=== PATIENT | female | born 1985 | race Caucasian/White ===

== ENCOUNTER 2019-01-24 23:09 | Emergency (ER) | payer OTHER ==
[~2019-01-24] VITALS: Ht 167.6 cm; Wt 61.2 kg
--- NOTE | 2019-01-24 23:54 | NUR ---
BREATH SOUNDS NOTED ON THE LT AND DIMINISHED ON THE RIGHT.
--- NOTE | 2019-01-24 23:54 | NUR ---
PT PRESENTED TO THE ER WITH A C/O COUGH W/CONGESTION. PT REC'D A Z-PACK 3 WEEKS AGO WITH NO IMROVEMENT. PT HAS A DRY COUGH. NO SPUTUM. PT IS C/O RT UPPER BACK PAIN (SHARP) AND PAIN WITH INSPIRATION/EXPIRATION.
--- NOTE | 2019-01-25 00:29 | NUR ---
CXR IN PROGRESS AT THE [facility].
--- NOTE | 2019-01-25 01:05 | NUR ---
PT APPEARS TO BE RESTING COMFORTABLY WITH NO S/S OF PAIN OR DISTRESS.
[2019-01-25] MEDS: DEXAMETHASONE SOD PHOSPHATE 4 MG/ML VIAL IM ONE (01:30)
--- NOTE | 2019-01-25 01:33 | NUR ---
PT REC'D MEDICATION ORDERED.
[2019-01-25] MEDS ORDERED: DEXAMETHASONE SOD PHOSPHATE 4 MG/ML VIAL ONE (01:35)
[2019-01-25 01:46] VITALS: BP 107/66
== END 2019-01-25 01:46 | disposition home or self-care (01) ==
LOC: ER 23:12
DX: J40 Bronchitis, not specified as acute or chronic (principal)
CPT/HCPCS: 71045; 96372; 99283; A4606; J1100

== ENCOUNTER 2019-04-21 00:34 | Emergency (ER) ==
[~2019-04-21] VITALS: Ht 167.6 cm; Wt 59.0 kg
--- NOTE | 2019-04-21 00:50 | NUR ---
PT PRESENTED TO THE ER WITH A C/O SOB. PT IS SPEAKING IN FULL SENTENCES AND IS C/O NON PRODUCTIVE COUGH. PT WAS PLACED ON THE MONITOR AND CONTINUOUS PULSE OX. O2 SAT IS 99-100% ON RA.
--- NOTE | 2019-04-21 01:42 | NUR ---
CXR IN PROGRESS AT THE BEDSIDE.
--- NOTE | 2019-04-21 01:50 | NUR ---
EKG AT BEDSIDE
--- NOTE | 2019-04-21 02:43 | NUR ---
Patient discharged to home in stable condition. Written and verbal after care instructions given. Patient verbalizes understanding of instruction. PT WAS TOLD TO GET AN APPT CARLOS ALBERTO WITH HER [employer] [facility] [employer] FOR FURTHER TESTING. PT'S VSS. PT AMBULATED OUT WITH A STEADY GAIT.
[2019-04-21 03:01] VITALS: BP 109/68
== END 2019-04-21 02:43 | disposition home or self-care (01) ==
LOC: ER 00:34
DX: R05 Cough (principal); R07.89 Other chest pain; J45.909 Unspecified asthma, uncomplicated; Z98.890 Other specified postprocedural states
CPT/HCPCS: 71045-TC

== ENCOUNTER 2019-07-13 02:22 | Emergency (ER) | payer OTHER ==
[2019-07-13] MEDS ORDERED: ONDANSETRON HCL/PF 4 MG/2 ML VIAL IVP ONE (03:30)
[2019-07-13] MEDS ORDERED: IV NS 0.9% 1,000 ML BAG IV ONE ×2 (03:30→05:00)
[2019-07-13] MEDS ORDERED: LOPERAMIDE HCL (2 MG CAP) 2 MG CAPSULE PO ONE ×2 (03:30→03:32)
[2019-07-13] MEDS ORDERED: FAMOTIDINE/PF INJ 20 MG/2 ML VIAL IV ONE ×2 (03:30→03:33)
[2019-07-13] MEDS ORDERED: ONDANSETRON HCL/PF 4 MG/2 ML VIAL ONE (03:32)
[2019-07-13] MEDS ORDERED: KETOROLAC TROMETHAMINE INJ 30 MG/ML VIAL ONE (05:48)
[2019-07-13] MEDS ORDERED: KETOROLAC TROMETHAMINE INJ 30 MG/ML VIAL IV ONE (06:00)
== END 2019-07-13 06:07 | disposition home or self-care (01) ==
DX: R11.2 Nausea with vomiting, unspecified (principal); R19.7 Diarrhea, unspecified; F41.9 Anxiety disorder, unspecified; J45.909 Unspecified asthma, uncomplicated; Z60.2 Problems related to living alone; Z98.890 Other specified postprocedural states
CPT/HCPCS: 36415; 80048; 80076; 81001; 83690; 84702; 85025; 96361; 96374; 96375; 99283; J1885; J2405; J3490; J7030 ×2

== ENCOUNTER 2019-10-31 13:02 | Emergency (ER) | payer BC, OTHER ==
[~2019-10-31] VITALS: Ht 170.2 cm; Wt 59.0 kg
--- NOTE | 2019-10-31 13:23 | NUR ---
PT CAME INTO THE ED C/O COUGH W/ CONGESTION X 1 WEEK, DIZZINESS, +NAUSEA. PT AAOX4, VSS, BREATHING EVEN AND UNLABORED ON ROOM AIR W/ NAD. PT CONENCTED TO THE MONITOR
[2019-10-31] MEDS ORDERED: IPRATROPIUM NEB FS 0.5 MG/2.5 ML AMPUL.NEB NEB ONE (14:00)
[2019-10-31] MEDS ORDERED: BENZONATATE 100 MG CAPSULE PO PRN (14:00)
[2019-10-31] MEDS ORDERED: predniSONE 20 MG TABLET PO ONE (14:00)
[2019-10-31] MEDS ORDERED: ALBUTEROL FS 2.5 MG/3 ML VIAL.NEB NEB ONE (14:00)
[2019-10-31] MEDS ORDERED: predniSONE 20 MG TABLET ONE (14:08)
[2019-10-31] MEDS ORDERED: IPRATROPIUM NEB FS 0.5 MG/2.5 ML AMPUL.NEB ONE (14:10)
[2019-10-31] MEDS ORDERED: ALBUTEROL FS 2.5 MG/3 ML VIAL.NEB ONE (14:10)
[2019-10-31 15:22] VITALS: BP 118/74
--- NOTE | 2019-10-31 15:22 | NUR ---
Patient discharged to home in stable condition. Written and verbal after care instructions given. Patient verbalizes understanding of instruction.
== END 2019-10-31 15:23 | disposition home or self-care (01) ==
LOC: ER 13:02
DX: J45.909 Unspecified asthma, uncomplicated (principal); F41.9 Anxiety disorder, unspecified; Z60.2 Problems related to living alone; Z98.890 Other specified postprocedural states
CPT/HCPCS: 71045; 94640; 99283; J7512

== ENCOUNTER 2019-12-02 11:57 | Emergency (ER) | payer BC, OTHER ==
[~2019-12-02] VITALS: Ht 167.6 cm; Wt 61.2 kg
[2019-12-02] MEDS ORDERED: IV NS 0.9% 1,000 ML BAG IV ONE (13:00)
[2019-12-02 13:03] LABS: BASOPHILS % (AUTO) 0.3 % (0.0-2.0); EOSINOPHILS % (AUTO) 1.1 % (0.0-6.0); HEMATOCRIT 41 % (33-45); HEMOGLOBIN 13.3 g/dL (11.5-14.8); LYMPHOCYTES # (AUTO) 1.7 /CMM (0.8-4.8); MEAN CORPUSCULAR HGB CONC 33 g/dl (31.0-36.0); MEAN CORPUSCULAR VOLUME 96 fL (82-100); MONOCYTES # (AUTO) 0.4 /CMM (0.1-1.30); MONOCYTES % (AUTO) 9.4 % (2.0-12.0); NEUTROPHILS # (AUTO) 2.5 /CMM (1.8-8.9); NEUTROPHILS % (AUTO) 53.2 % (43.0-81.0); PLATELET COUNT (AUTO) 211 /CMM (150-450); RED BLOOD CELL COUNT(AUTO) 4.25 MIL/uL (4.0-5.2); WHITE BLOOD COUNT (AUTO) 4.6 K/uL (4.3-11.0)
[2019-12-02 13:06] LABS: APPEARANCE,URINE Clear (CLEAR); BILIRUBIN,URINE Negative (NEGATIVE); BLOOD, URINE Small Ery/uL (NEGATIVE); COLOR,URINE Yellow (YELLOW); KETONES,URINE Negative (NEGATIVE); LEUKOCYTE ESTERASE ,URINE Negative (NEGATIVE); NITRITE, URINE Negative (NEGATIVE); PH,URINE 5.5 (5.0-8.0); PROTEIN,URINE Negative (NEGATIVE); UGLUCOSE Negative (NEGATIVE); UROBILINOGEN,URINE 0.2 EU/dL (0.2)
--- NOTE | 2019-12-02 13:10 | NUR ---
US TECH AT BEDSIDE.
[2019-12-02 13:18] LABS: BACTERIA,URINE Few /HPF (None Seen); SQUAMOUS EPITHELIAL CELL,UR Few /HPF (None Seen); WBC,URINE NONE SEEN /HPF (0-3)
[2019-12-02 13:21] LABS: CREATININE 0.7 mg/dL (0.6-1.3); POTASSIUM 4.6 mmol/L (3.5-5.1)
[2019-12-02 15:00] VITALS: BP 128/81
== END 2019-12-02 15:00 | disposition home or self-care (01) ==
LOC: ER 11:58
DX: N83.202 Unspecified ovarian cyst, left side (principal); J45.909 Unspecified asthma, uncomplicated; F41.9 Anxiety disorder, unspecified; R42 Dizziness and giddiness; Z98.890 Other specified postprocedural states; Z60.2 Problems related to living alone
CPT/HCPCS: 36415; 76856; 80048; 81001; 84703; 85025; 96360; 99284; J7030; 81000-TC

== ENCOUNTER 2021-04-16 19:18 | Emergency (ER) | payer BC ==
[~2021-04-16] VITALS: Ht 167.6 cm; Wt 56.7 kg
--- NOTE | 2021-04-16 19:34 | NUR ---
PT AAOX4. BIBS FOR C/O SKIN REDNESS AND BEING UNABLE TO BREATH X 2 HOURS. PT PLACED ON MONITOR AND PULSE OX IN BED 11. NO ACUTE DISTRESS NOTED. AWAITING ER MD FOR EVAL AND ORDERS.
[2021-04-16] MEDS ORDERED: methylPREDNISolone SOD SUCC 125 MG/2ML VIAL ONE (19:44)
[2021-04-16] MEDS ORDERED: FAMOTIDINE/PF INJ 20 MG/2 ML VIAL IV ONE (19:44)
[2021-04-16] MEDS ORDERED: LORAZEPAM INJ 2 MG/ML VIAL ONE ×2 (19:45→21:55)
[2021-04-16 19:50] LABS: BASOPHILS % (AUTO) 0.3 % (0.0-2.0); EOSINOPHILS % (AUTO) 1.6 % (0.0-6.0); HEMATOCRIT 46 % (33-45); HEMOGLOBIN 15.1 g/dL (11.5-14.8); LYMPHOCYTES # (AUTO) 2.4 /CMM (0.8-4.8); LYMPHOCYTES % (AUTO) 33.7 % (20.0-44.0); MEAN CORPUSCULAR HGB CONC 33 g/dl (31.0-36.0); MEAN CORPUSCULAR VOLUME 92 fL (82-100); MONOCYTES # (AUTO) 0.7 /CMM (0.1-1.30); MONOCYTES % (AUTO) 9.9 % (2.0-12.0); NEUTROPHILS # (AUTO) 3.9 /CMM (1.8-8.9); NEUTROPHILS % (AUTO) 54.5 % (43.0-81.0); PLATELET COUNT (AUTO) 250 /CMM (150-450); RED BLOOD CELL COUNT(AUTO) 4.98 MIL/uL (4.0-5.2); WHITE BLOOD COUNT (AUTO) 7.2 K/uL (4.3-11.0)
[2021-04-16] MEDS: IV NS 0.9% 1,000 ML BAG IV ONE ×2 (19:50→23:48)
[2021-04-16] MEDS: FAMOTIDINE/PF INJ 20 MG/2 ML VIAL IV ONE (19:51)
[2021-04-16] MEDS: methylPREDNISolone SOD SUCC 125 MG/2ML VIAL IV ONE (19:53)
[2021-04-16] MEDS: LORAZEPAM INJ 2 MG/ML VIAL IV ONE ×2 (19:53→22:00)
[2021-04-16 20:01] LABS: CALCIUM, SERUM 9.2 mg/dL (8.5-10.1); CREATININE 0.7 mg/dL (0.6-1.3)
[2021-04-16 20:07] LABS: ALBUMIN 4.4 g/dL (3.4-5.0); BILIRUBIN,DIRECT 0.1 mg/dL (0.0-0.2); BILIRUBIN,TOTAL 0.4 mg/dL (0.2-1.0); TOTAL PROTEIN, SERUM 8.2 g/dL (6.4-8.2)
[2021-04-16] MEDS ORDERED: HYDROCODONE/APAP 5/325MG TABLET ONE (20:38)
[2021-04-16] MEDS: HYDROCODONE/APAP 5/325MG TABLET PO ONE (20:43)
[2021-04-16] MEDS ORDERED: MORPHINE SULFATE INJ 2 MG/ML DISP.SYRIN ONE ×2 (20:53→23:43)
[2021-04-16] MEDS: MORPHINE SULFATE INJ 4 MG/ML DISP.SYRIN IV ONE (20:57)
[2021-04-16] MEDS ORDERED: IV NS 0.9% 250 ML IV ONE (21:32)
[2021-04-16] MEDS ORDERED: IOHEXOL-350 100 ML VIAL IV ONE (21:32)
[2021-04-16] MEDS ORDERED: CT SWABBABLE VALVE TRANS SET 1 EA INFUS.SET MC ONE (21:33)
--- NOTE | 2021-04-16 21:48 | NUR ---
US AT BEDSIDE
--- NOTE | 2021-04-16 22:44 | NUR ---
BROUGHT TO CT
[2021-04-16] MEDS ORDERED: FAMO-131 PO (23:29)
[2021-04-16] MEDS ORDERED: LORA10TA7 PO (23:29)
[2021-04-16] MEDS ORDERED: PRED20TA PO (23:29)
[2021-04-16] MEDS: MORPHINE SULFATE INJ 2 MG/ML DISP.SYRIN IV ONE (23:48)
[2021-04-17 01:19] VITALS: BP 111/73
--- NOTE | 2021-04-17 01:19 | NUR ---
IV removed. Catheter intact and site benign. Pressure and 4x4 applied to site. No bleeding noted.
--- NOTE | 2021-04-17 01:19 | NUR ---
Patient discharged to home in stable condition. Written and verbal after care instructions given. Patient verbalizes understanding of instruction and RX. Pt ambulated out of ED. VSS.
== END 2021-04-17 01:20 | disposition home or self-care (01) ==
LOC: ER 19:21
DX: T78.49XA Other allergy, initial encounter (principal); R00.0 Tachycardia, unspecified; F41.9 Anxiety disorder, unspecified; J45.909 Unspecified asthma, uncomplicated; Z98.890 Other specified postprocedural states; Z60.2 Problems related to living alone; Z79.899 Other long term (current) drug therapy; X58.XXXA Exposure to other specified factors, initial encounter
CPT/HCPCS: 36415; 71045; 71275; 80048; 80076; 84484; 84702; 85025; 85378; 85730; 93005; 93970; 96361; 96374; 96375; 96376; 99285; J2060 ×2; J2270 ×2; J2930; J3490; J7030 ×2; J7050; Q9967

== ENCOUNTER 2021-06-18 11:56 | Emergency (ER) | payer BC, OTHER ==
[~2021-06-18] VITALS: Ht 167.6 cm; Wt 64.0 kg
[~2021-06-18 11:56] MED LIST: FAMO-131 PO; LORA10TA7 PO; PRED20TA PO
--- NOTE | 2021-06-18 12:43 | NUR ---
Graeme gonzalez in [facility] - 06/18/21 at 1304 by HALEY EMANUEL PCR SENT TO LAB.
[2021-06-18 12:47] LABS: BASOPHILS % (AUTO) 0.2 % (0.0-2.0); EOSINOPHILS % (AUTO) 1.2 % (0.0-6.0); HEMATOCRIT 38 % (33-45); HEMOGLOBIN 12.6 g/dL (11.5-14.8); LYMPHOCYTES % (AUTO) 21.6 % (20.0-44.0); MEAN CORPUSCULAR HGB CONC 33 g/dl (31.0-36.0); MEAN CORPUSCULAR VOLUME 91 fL (82-100); MONOCYTES # (AUTO) 0.7 K/uL (0.1-1.30); MONOCYTES % (AUTO) 7.5 % (2.0-12.0); NEUTROPHILS # (AUTO) 6.4 K/uL (1.8-8.9); NEUTROPHILS % (AUTO) 69.5 % (43.0-81.0); PLATELET COUNT (AUTO) 245 K/uL (150-450); RED BLOOD CELL COUNT(AUTO) 4.17 MIL/uL (4.0-5.2); WHITE BLOOD COUNT (AUTO) 9.1 K/uL (4.3-11.0)
--- NOTE | 2021-06-18 12:53 | NUR ---
L UPPER BACK PAIN, SOB, PAIN TAKING DEEP BREATHS X "COUPLE HOURS" ANXIOUS HX OF DVT. PT AAOX4, VSS. RR EVEN & UNLABORED. PT STS THAT SHE HAD A SYNCOPAL EPISODE AT WORK & C/O LT KNEE PAIN & SWELLING ON BOTH LEGS, ERMD AWARE. DENIES CP, DIZZINESS, N/V AT THIS TIME. PLACED ON FAST FOOD FRY COOK, SR. WILL CONT TO MONITOR.
[2021-06-18 12:55] LABS: CALCIUM, SERUM 8.7 mg/dL (8.5-10.1); CARBON DIOXIDE 23 mmol/L (21-32); CHLORIDE 107 mmol/L (98-107); CREATININE 0.7 mg/dL (0.6-1.3); GLUCOSE 95 mg/dL (74-106); POTASSIUM 4.8 mmol/L (3.5-5.1); SODIUM SERUM 142 mmol/L (136-145); UREA NITROGEN, BLOOD 13 mg/dL (7-18)
[2021-06-18 13:54] VITALS: BP 112/72
--- NOTE | 2021-06-18 13:54 | NUR ---
Patient discharged to home in stable condition. Written and verbal after care instructions given. Patient verbalizes understanding of instruction. IV removed. Catheter intact and site benign. Pressure and 4x4 applied to site. No bleeding noted.
== END 2021-06-18 13:55 | disposition home or self-care (01) ==
LOC: ER 11:56
DX: R55 Syncope and collapse (principal); R07.89 Other chest pain; M25.562 Pain in left knee; J45.909 Unspecified asthma, uncomplicated; F41.9 Anxiety disorder, unspecified; Z86.73 Personal history of transient ischemic attack (TIA), and cerebral infarction without residual deficits; Z98.890 Other specified postprocedural states; Z60.2 Problems related to living alone; Z79.899 Other long term (current) drug therapy
CPT/HCPCS: 36415; 71045-TC; 80048-TC; 83880; 84484-TC; 85025-TC; 85378-TC

== ENCOUNTER 2022-01-31 19:10 | Emergency (ER) | payer BC ==
[~2022-01-31] VITALS: Ht 167.6 cm; Wt 67.6 kg
--- NOTE | 2022-01-31 19:40 | NUR ---
PATIENT BIBSELF WITH C/O LEFT SIDE MID BACK PAIN WITH COUGH. PT IS AAO X 4, RESPIRATIONS UNLABORED, SATURATION AT 100% ON ROOM AIR. PATIENT STATES SHE HAS NOT BEEN AROUND ANY BODY WHO'S SICK. SHE IS VACCINATED WITH JOANNA JUST THIS YEAR. SHE STATES SHE HAD THIS COUGH FOR A LONG TIME, AND HAS HAD LUNG COLLAPSE, AND PNEUMOTHORAX IN THE PAST. PATIENT SEEN AND EXAMINED BY DR REARDON. PT ATTACHED TO MONITOR AND PULSE OX. WILL CONT TO MONITOR AND CARRY OUT MD ORDERS.
--- NOTE | 2022-01-31 19:44 | NUR ---
KAIAKO KURA TUARUA AT BEDSIDE FOR CXR
--- NOTE | 2022-01-31 20:06 | NUR ---
COVID ANTIGEN AND PCR SWAB DONE, SENT TO LAB
[2022-01-31] MEDS ORDERED: PROM118S PO ×2 (20:42→20:47)
[2022-01-31] MEDS ORDERED: ALBU6.7H9 INH (20:49)
--- NOTE | 2022-01-31 20:50 | NUR ---
DR REARDON AT BEDSIDE
[2022-01-31] MEDS ORDERED: PROM118S5 PO (20:54)
--- NOTE | 2022-01-31 21:10 | NUR ---
Patient discharged to home in stable condition. Written and verbal after care instructions given. Patient verbalizes understanding of instruction. Patient ambulatory with a steady gait
[2022-01-31 21:15] VITALS: BP 130/70
== END 2022-01-31 21:15 | disposition home or self-care (01) ==
LOC: ER 19:12
DX: R05.3 Chronic cough (principal); Z20.822 Contact with and (suspected) exposure to COVID-19; J45.909 Unspecified asthma, uncomplicated; Z86.718 Personal history of other venous thrombosis and embolism
CPT/HCPCS: 71045; 87426; 99284; C9803; U0003